=== PATIENT | female | born 1980 | race Caucasian/White ===

== ENCOUNTER 2018-01-23 08:07 | Emergency (ER) | END 2018-01-23 12:47 | disposition home or self-care (01) ==

== ENCOUNTER 2018-12-06 15:37 | Emergency (ER) | payer OTHER ==
[~2018-12-06] VITALS: Ht 160 cm; Wt 93.0 kg
[~2018-12-06 15:37] MED LIST: ACET500C5 PO; CARI350T PO; TYL500 PO
[2018-12-06 15:38] VITALS: Ht 160 cm; Wt 93.0 kg
--- NOTE | 2018-12-06 16:22 | ERD ---
ER Documentation Chief Complaint Chief Complaint rt side chest pain radiating to back x 1 day ,hurts more with any movement HPI This is a 30-year-old woman complaining of sharp nonexertional nonradiating right-sided chest pain x1 day, pain radiates to the right upper back and is worse with movement of the torso and right upper extremity. She denies any direct trauma, no fevers or chills, no cough, no shortness of breath, no paresis or paresthesias, no vomiting or diarrhea. ROS All systems reviewed and are negative except as per history of present illness. Medications Home Meds Active Scripts Alprazolam* (Xanax*) 0.5 Mg Tab, 0.5 MG PO TID PRN for PAIN AND/OR INFLAMMATION, #12 TAB Prov:SHRUTI TERESA MD 12/06/18 Naproxen* (Naprosyn*) 500 Mg Tablet, 500 MG PO BID PRN for PAIN AND/OR INFLAMMATION, #30 TAB Prov:SHRUTI TERESA MD 12/06/18 Discontinued Reported Medications Acetaminophen* (Tylenol*) 500 Mg Tab, 1000 MG PO Q6H PRN for PAIN AND OR ELEVATED TEMP, TAB 01/23/18 Discontinued Scripts Carisoprodol* (Soma*) 350 Mg Tablet, 350 MG PO TID PRN for MUSCLE SPASMS, #12 TAB Prov:SHRUTI TERESA MD 01/23/18 Acetaminophen* (Tylophen*) 500 Mg Capsule, 2 CAP PO Q8H PRN for PAIN AND/OR INF LAMMATION, #30 CAP Prov:SHRUTI TERESA MD 01/23/18 Allergies Allergies: Coded Allergies: metoclopramide (Verified Adverse Reaction, Unknown, 12/06/18) PMhx/Soc History of anxiety and recurrent chest pain Medical and Surgical Hx: pt denies Medical Hx, pt denies Surgical Hx Hx Alcohol Use: No Hx Substance Use: No Hx Tobacco Use: No Smoking Status: Never smoker FmHx Family History: No diabetes Physical Exam Vitals Vital Signs Date Temp Pulse Resp B/P (MAP) Pulse Ox O2 O2 Flow FiO2 Time Delivery Rate 12/06/18 81 18 115/75 100 Room Air 17:30 (88) 12/06/18 98.5 75 18 103/74 100 Room Air 15:59 (84) 12/06/18 98.5 72 18 119/78 100 15:38 (92) Physical Exam GENERAL: Well-developed, well-nourished, well-hydrated, patient appears anxious, afebrile NEURO: Alert and oriented 3, cranial nerves II through XII intact bilaterally, pupils equal round reactive to light, no focal deficits or facial asymmetry, sensation intact distally Strength 5/5 in upper and lower extremities bilaterally CARDIAC: Regular rate and rhythm, no murmurs rubs or gallops LUNGS: Clear bilaterally no wheezing crackles or stridor SKIN: Warm and dry to touch, no abrasions, contusions, or hematomas, no lacerations, no ecchymosis, no target lesions, and without ulcers EXTREMITIES: No clubbing cyanosis or edema, calves are bilaterally symmetrical, no Homans sign, no popliteal cord sign. Distal pulses equal and bilateral PSYCH: Appears anxious Results 24 hrs Current Medications Medications Dose Sig/Zaki Start Time Status Last (Trade) Ordered Route PRN Stop Time Admin Dose Reason Admin Ketorolac 30 mg ONCE STAT 12/06/18 DC 12/06/18 Tromethamine IM 16:24 12/06/18 16:33 (Toradol) 16:25 Alprazolam 0.5 mg ONCE ONCE 12/06/18 DC 12/06/18 (Xanax) PO 16:30 12/06/18 16:33 16:31 Procedures/MDM EKG performed, read by me: 78 bpm, normal sinus rhythm, normal axis, no acute ST segment changes, narrow QRS complex, with good R-wave progression in precordial leads. Patient appears anxious and I administered Toradol 30 mg IM x1 for pain control and alprazolam 0.5 mg p.o. Differential diagnoses considered, included but not limited to acute coronary syndrome, pulmonary embolism, aortic dissection, abdominal aortic aneurysm, sepsis, stroke, meningitis, encephalitis, pneumonia, appendicitis, cholecystitis, bowel obstruction, pyelonephritis, nephrolithiasis, cystitis, as well as metabolic, hematologic, and electrolyte abnormalities. As well as abscess, cellulitis, fractures, and dislocations. Patient feels much better at this time, and vital signs are normal, symptoms have improved. I did give strict instructions to return to the ED if symptoms continue or worsen, patient will otherwise follow-up with primary care physi charisse. Patient understood instructions and agreed to plan. Disclaimer: Inadvertent spelling and grammatical errors are likely due to EHR/dictation software use and do not reflect on the overall quality of patient care. Also, please note that the electronic time recorded on this note does not necessarily reflect the actual time of the patient encounter. Departure Diagnosis: Primary Impression: Chest wall muscle strain Encounter type: initial encounter Qualified Codes: S29.011A - Strain of muscle and tendon of front wall of thorax, initial encounter Additional Impression: Acute anxiety Condition: Good SHRUTI TERESA MD Dec 06, 2018 16:22
[2018-12-06] MEDS ORDERED: KETOROLAC 30 MG INJ IM STA (16:24)
[2018-12-06] MEDS ORDERED: NAPR-985 PO (16:27)
[2018-12-06] MEDS ORDERED: ALPR0.5T PO (16:27)
[2018-12-06] MEDS ORDERED: ALPRAZOLAM 0.25 MG TAB PO ONE (16:30)
[2018-12-06 17:30] VITALS: BP 115/75; PULSE 81; RESP 18
== END 2018-12-06 17:46 | disposition home or self-care (01) ==
LOC: E/R 15:37
DX: S29.011A Strain of muscle and tendon of front wall of thorax, initial encounter (principal); F41.9 Anxiety disorder, unspecified; X58.XXXA Exposure to other specified factors, initial encounter; Y92.9 Unspecified place or not applicable
CPT/HCPCS: 96372; J1885; Z7502; Z7610; 93005